=== PATIENT | female | born 1985 | race Two or more races ===

== ENCOUNTER 2018-04-12 17:33 | Emergency (ER) | payer BC, MEDICAID ==
--- NOTE | 2018-04-12 19:00 | ER Document Report ---
ED Medical Screen (RME) - General Chief Complaint: High blood pressure/ LOZADA/ Stated Complaint: BLOOD PRESSURE ISSUE, HEADACHE Time Seen by Provider: 04/12/18 17:58 Notes: RAPID MEDICAL EVALUATION DISCLOSURE I have seen this patient as part of a Rapid Medical Evaluation and, if applicable, placed any initially appropriate orders. The patient will be seen and fully evaluated, including a full history and physical exam, by a provider ( in Main ED or Fast Track) when a room becomes available. 33-year-old female approximately 10 weeks gestation here with complaints of feeling "yucky", slightly blurry vision (intermittent), bilateral leg tingling, chest tightness, nasal congestion, sharp back pains ongoing for the past 3 days. When she checked her blood pressure earlier today it was 152/93 and she became concerned so she came to the ED for evaluation. She has a diagnosis of hypertension but states she tries to control it with diet and exercise and therefore does not take any antihypertensive medications. Denies any abdominal pain vaginal bleeding discharge fevers chills. Here the blood pressure is 120s systolic. EXAM CTAB RRR TRAVEL OUTSIDE OF THE [place] IN LAST 30 DAYS: No - Related Data Allergies/Adverse Reactions: Penicillins Allergy (Verified 10/17/14 09:21) Past Medical History - Social History Chew tobacco use (# tins/day): No Frequency of alcohol use: None Drug Abuse: None Pulmonary Medical History: Reports: Hx Asthma Renal/ Medical History: Denies: Hx Peritoneal Dialysis Psychiatric Medical History: Reports: Hx Attention Deficit Hyperactivity Disorder Past Surgical History: Reports: Hx Adenoidectomy, Hx Tonsillectomy - adenoids - Immunizations Hx Diphtheria, Pertussis, Tetanus Vaccination: Yes Physical Exam - Vital signs Vitals: Temp Pulse Resp BP Pulse Ox 98.0 F 77 16 129/84 H 99 04/12/18 17:37 04/12/18 17:37 04/12/18 17:37 04/12/18 17:37 04/12/18 17:37 Course - Vital Signs Vital signs: Temp Pulse Resp BP Pulse Ox 98.0 F 77 16 129/84 H 99 04/12/18 17:37 04/12/18 17:37 04/12/18 17:37 04/12/18 17:37 04/12/18 17:37 Doctor's Discharge - Discharge Referrals: DOMINGO MAJANO DO [Primary Care Provider] - Follow up as needed
[2018-04-12 20:14] LABS: ABSOLUTE EOSINOPHILS # (AUTO) 0.2 10^3/uL (0.0-0.6); ABSOLUTE LYMPHOCYTES (AUTO) 2.8 10^3/uL (0.5-4.7); ABSOLUTE MONOCYTES (AUTO) 0.6 10^3/uL (0.1-1.4); ABSOLUTE NEUT (AUTO) 6.1 10^3/uL (1.7-8.2); BASOPHILS % (AUTO) 0.4 % (0-2); EOSINOPHILS % (AUTO) 2.1 % (0-6); HEMATOCRIT 40.5 % (36.0-47.0); HEMOGLOBIN 13.9 g/dL (12.0-15.5); LYMPHOCYTES % (AUTO) 28.5 % (13-45); MEAN CORPUSCULAR HEMOGLOBIN 28.6 pg (27.0-33.4); MEAN CORPUSCULAR HGB CONC 34.4 g/dL (32.0-36.0); MEAN CORPUSCULAR VOLUME 83 fl (80-97); MONOCYTES % (AUTO) 6.1 % (3-13); PLATELET COUNT 287 10^3/uL (150-450); RED BLOOD COUNT 4.87 10^6/uL (3.72-5.28); RED CELL DISTRIBUTION WIDTH 15.3 % (11.5-14.0); SEGMENTED NEUTROPHILS % (AUTO) 62.9 % (42-78); TOTAL CELLS COUNTED % (AUTO) 100 %; WHITE BLOOD COUNT 9.7 10^3/uL (4.0-10.5)
[2018-04-12 20:36] LABS: APPEARANCE,URINE SLIGHTLY-CLOUDY; BILIRUBIN,URINE NEGATIVE (NEGATIVE); COLOR,URINE YELLOW; GLUCOSE, URINE NEGATIVE (NEGATIVE); KETONES,URINE NEGATIVE (NEGATIVE); LEUKOCYTE ESTERASE,URINE NEGATIVE (NEGATIVE); NITRITE,URINE NEGATIVE (NEGATIVE); PROTEIN,URINE NEGATIVE (NEGATIVE); UROBILINOGEN,URINE NEGATIVE mg/dL (<2.0)
[2018-04-12 20:44] LABS: ANION GAP 13 (5-19); BLOOD UREA NITROGEN 11 mg/dL (7-20); CALCIUM 10.2 mg/dL (8.4-10.2); CARBON DIOXIDE 24 mmol/L (22-30); CHLORIDE 103 mmol/L (98-107); GLUCOSE 90 mg/dL (75-110); PHOSPHORUS 3.9 mg/dL (2.5-4.5); POTASSIUM 4.2 mmol/L (3.6-5.0); SODIUM 140.2 mmol/L (137-145)
--- NOTE | 2018-04-12 21:29 | ER Document Report ---
ED General - General Chief Complaint: High blood pressure/ LOZADA/ Stated Complaint: BLOOD PRESSURE ISSUE, HEADACHE Time Seen by Provider: 04/12/18 17:58 Notes: Patient is a 33-year-old female, at 10 weeks gestation, that comes to the emergency department for a variety of symptoms for the past 3 days including congestion, vague feeling of tightness in her chest and tingling in her extremities, some pain down her back. She states she checked her blood pressure and was elevated so she became concerned and came in to be evaluated. Blood pressure at home was 152/93, 120 systolic per measurement here. Not medicated for this. She admits to nausea with first trimester, denies repeated vomiting, denies fever, denies any current symptoms. TRAVEL OUTSIDE OF THE [place] IN LAST 30 DAYS: No - Related Data Allergies/Adverse Reactions: Penicillins Allergy (Verified 10/17/14 09:21) Past Medical History - General Information source: Patient - Social History Smoking Status: Former Smoker Chew tobacco use (# tins/day): No Frequency of alcohol use: None Drug Abuse: None Lives with: Family Family History: Reviewed & Not Pertinent Patient has suicidal ideation: No Patient has homicidal ideation: No Pulmonary Medical History: Reports: Hx Asthma Renal/ Medical History: Denies: Hx Peritoneal Dialysis Psychiatric Medical History: Reports: Hx Attention Deficit Hyperactivity Disorder Past Surgical History: Reports: Hx Adenoidectomy, Hx Tonsillectomy - adenoids - Immunizations Hx Diphtheria, Pertussis, Tetanus Vaccination: Yes Review of Systems - Review of Systems Constitutional: See HPI EENT: See HPI Cardiovascular: See HPI Respiratory: See HPI Gastrointestinal: No symptoms reported Genitourinary: No symptoms reported Female Genitourinary: See HPI Musculoskeletal: No symptoms reported Skin: No symptoms reported Hematologic/Lymphatic: No symptoms reported Neurological/Psychological: See HPI Physical Exam - Vital signs Vitals: Temp Pulse Resp BP Pulse Ox 98.0 F 77 16 129/84 H 99 04/12/18 17:37 04/12/18 17:37 04/12/18 17:37 04/12/18 17:37 04/12/18 17:37 - Notes Notes: GENERAL: Alert, interacts well. No acute distress. HEAD: Normocephalic, atraumatic. EYES: Pupils equal, round, and reactive to light. Extraocular movements intact. ENT: Oral mucosa moist, tongue midline. Oral pharyngeal exam unremarkable. NECK: Full range of motion. Supple. Trachea midline. LUNGS: Clear to auscultation bilaterally, no wheezes, rales, or rhonchi. No respiratory distress. HEART: Regular rate and rhythm. No murmur ABDOMEN: Soft, non-tender. Non-distended. Bowel sounds present in all 4 quadrants. EXTREMITIES: Moves all 4 extremities spontaneously. No edema, normal radial and dorsalis pedis pulses bilaterally. No cyanosis. BACK: no cervical, thoracic, lumbar midline tenderness. No saddle anesthesia, normal distal neurovascular exam. NEUROLOGICAL: Alert and oriented x3. Normal speech. [cranial nerves II through XII grossly intact]. PSYCH: Normal affect, normal mood. SKIN: Warm, dry, normal turgor. No rashes or lesions noted. Course - Re-evaluation Re-evalutation: Patient smiling, talkative, laughing, well-appearing. No tachycardia, no hypertension or hypotension, no fever. Soft benign abdomen, unremarkable back exam, no current chest or respiratory symptoms. EKG showing sinus rhythm with no T-wave inversions or ST segment changes in consecutive leads. Patient declined a chest x-ray. No hypoxia. CBC, chemistry unremarkable. TSH is borderline. Urinalysis shows elevated specific gravity but is otherwise unremarkable. Discussed results with patient. Patient requesting to leave. She declines any medications, she states she just wanted to be checked out. I have low suspicion of pulmonary embolism based on her vital signs, symptoms, she has never had one, she does not smoke, she has no swollen lower extremities. She also has no pain symptoms. Discussed follow-up and return precautions, patient will have thyroid panel performed, patient states satisfaction and agreement. - Vital Signs Vital signs: Temp Pulse Resp BP Pulse Ox 98.0 F 76 18 115/77 100 04/12/18 22:25 04/12/18 22:25 04/12/18 22:25 04/12/18 22:25 04/12/18 22:25 - Laboratory Result Diagrams: 04/12/18 20:04 04/12/18 20:04 Laboratory results interpreted by me: 04/12/18 04/12/18 04/12/18 20:04 20:04 20:04 RDW 15.3 H TSH 5.51 H Beta HCG, Quant 36929.00 H Discharge - Discharge Clinical Impression: Blood pressure check, Paresthesia, Chest tightness Condition: Stable Disposition: HOME, SELF-CARE Additional Instructions: Your workup is normal except for a borderline thyroid screening test and some dehydration. Improve hydration, follow-up for additional evaluation and management in terms of management and thyroid evaluation. Return for any concerning or worsening symptoms including difficulty breathing, passing out, severe pain, fever, uncontrolled vomiting, or any other concerning or worsening symptoms. Referrals: DOMINGO MAJANO DO [Primary Care Provider] - Follow up as needed
[2018-04-12 22:26] VITALS: BP 115/77
--- NOTE | 2018-04-13 07:51 | EKG REPORT ---
SEVERITY:- NORMAL ECG - SINUS RHYTHM : Confirmed by: Moses Amaya MD 13-Apr-2018 07:51:25
== END 2018-04-12 22:27 | disposition home or self-care (01) ==
LOC: ER 17:33
DX: O26.891 Other specified pregnancy related conditions, first trimester (principal); R20.2 Paresthesia of skin; R07.89 Other chest pain; R11.0 Nausea; O99.89 Other specified diseases and conditions complicating pregnancy, childbirth and the puerperium; M54.9 Dorsalgia, unspecified; O99.511 Diseases of the respiratory system complicating pregnancy, first trimester; J45.909 Unspecified asthma, uncomplicated; Z3A.10 10 weeks gestation of pregnancy; Z87.891 Personal history of nicotine dependence; Z88.0 Allergy status to penicillin
CPT/HCPCS: 36415; 80048; 81001; 83735; 84100; 84443; 84484; 84702; 85025; 93005; 93010; 99284